=== PATIENT | male | born 1970 | race American Indian/Alaskan Native ===

== ENCOUNTER 2017-09-07 01:02 | Emergency (ER) | payer SELFPAY ==
[2017-09-07 01:31] VITALS: TEMP 96.8; O2SAT 98
--- NOTE | 2017-09-07 01:48 | ED PDOC ---
HPI: Psych/Substance Abuse Time Seen by Provider: 09/07/17 01:09 Chief Complaint (Nursing): Alcohol Ingestion Chief Complaint (Provider): Alcohol Ingestion History Per: Patient History/Exam Limitations: intoxication Onset/Duration Of Symptoms: Days (x1) Current Symptoms Are (Timing): Still Present Modifying Factor(s): Alcohol Additional History Per: EMS Additional Complaint(s): Sundar is a 47 year old male who was brought in by EMS for public intoxication. Patient admits to drinking alcohol today. Per police, patient was found intoxicated in the street. Patient has no further medical complaints at this time. PMD: Provider TBD Past Medical History Reviewed: Historical Data, Nursing Documentation, Vital Signs Vital Signs: Last Vital Signs Temp 96.8 F L 09/07/17 01:19 Pulse 83 09/07/17 01:19 Resp 19 09/07/17 01:19 BP 123/78 09/07/17 01:19 Pulse Ox 98 09/07/17 01:19 - Medical History PMH: Depression - Surgical History Surgical History: No Surg Hx - Family History Family History: States: Unknown Family Hx - Social History Current smoker - smoking cessation education provided: No Alcohol: < 2 Drinks/Day Drugs: Denies - Allergies Allergies/Adverse Reactions: Allergies Allergy/AdvReac Type Severity Reaction Status Date / Time No Known Allergies Allergy Verified 09/07/17 01:19 Review of Systems Review Of Systems: ROS cannot be obtained secondary to pt's inabilty to answer questions. Physical Exam - Reviewed Nursing Documentation Reviewed: Yes Vital Signs Reviewed: Yes - Physical Exam Appears: Positive for: Non-toxic, No Acute Distress Head Exam: Positive for: ATRAUMATIC, NORMOCEPHALIC Skin: Positive for: Normal Color, Warm, Dry Eye Exam: Positive for: EOMI, Normal appearance, PERRL Neck: Positive for: Normal, Painless ROM Cardiovascular/Chest: Positive for: Regular Rate, Rhythm. Negative for: Murmur Respiratory: Positive for: Normal Breath Sounds. Negative for: Respiratory Distress Gastrointestinal/Abdominal: Positive for: Normal Exam, Soft. Negative for: Tenderness Extremity: Positive for: Normal ROM. Negative for: Pedal Edema, Deformity Neurologic/Psych: Positive for: Alert (and awake), Other (Slurred speech. Appears drowsy but easily arousable. ) - Laboratory Results Result Diagrams: 09/07/17 01:54 09/07/17 01:54 - ECG O2 Sat by Pulse Oximetry: 98 (RA) Pulse Ox Interpretation: Normal Medical Decision Making Medical Decision Making: Time: 01:29 Initial Impression: 47 year old male with ETOH intoxication Initial Plan: --Alcohol serum --CMP --CBC --Accucheck --Pending clinical sobriety Scribe Attestation: Documented by Darleen Dasilva, acting as a scribe for Milton Angel MD Provider Scribe Attestation: All medical record entries made by the Scribe were at my direction and personally dictated by me. I have reviewed the chart and agree that the record accurately reflects my personal performance of the history, physical exam, medical decision making, and the department course for this patient. I have also personally directed, reviewed, and agree with the discharge instructions and disposition. Disposition - Clinical Impression Clinical Impression: Alcohol abuse with intoxication - Disposition Disposition: Routine/Home Disposition Time: 07:00 Condition: STABLE Instructions: Alcohol Intoxication (ED) Forms: [place] (Frisian)
[2017-09-07 01:56] LABS: BASO # 0.1 K/uL (0.0-0.2); BASO % 2.2 % (0.0-2.0); EOS # 0.2 K/uL (0.0-0.7); EOS % 4.5 % (0.0-4.0); HEMATOCRIT 42.9 % (35.0-51.0); LYMPH # 2.2 K/uL (1.0-4.3); LYMPH % 50.5 % (20.0-40.0); MEAN CELL VOLUME 90.5 fl (80.0-94.0); MEAN CORPUSCULAR HEMOGLOBIN 29.6 pg (27.0-31.0); MEAN CORPUSCULAR HGB CONC 32.7 g/dL (33.0-37.0); MEAN PLATELET VOLUME 8.2 fl (7.2-11.7); MONO # 0.5 K/uL (0.0-0.8); MONO % 12.5 % (0.0-10.0); NEUT # 1.3 K/uL (1.8-7.0); NEUT % 30.3 % (50.0-75.0); NRBC % 0.1 % (0.0-0.0); RED CELL DISTRIBUTION WIDTH 13.9 % (11.5-14.5); WHITE BLOOD COUNT 4.4 K/uL (4.8-10.8)
[2017-09-07 02:07] LABS: ALCOHOL SERUM 205 mg/dl (0-10); ALKALINE PHOSPHATASE 65 U/L (38-126); ALT/SGPT 58 U/L (21-72); AST/SGOT 37 U/L (17-59); BILIRUBIN,TOTAL 0.5 mg/dl (0.2-1.3); BLOOD UREA NITROGEN 21 mg/dl (9-20); CALCIUM 9.3 mg/dL (8.4-10.2); CARBON DIOXIDE 27 mmol/L (22-30); CHLORIDE 100 mmol/L (98-107); GFR AFRICAN-AMERICAN > 60; GLUCOSE,RANDOM 88 mg/dL (75-110); POTASSIUM 3.8 MMOL/L (3.6-5.0); SODIUM 145 mmol/l (132-148); TOTAL PROTEIN 8.8 G/DL (6.3-8.2)
[2017-09-07 02:08] LABS: ALB/GLOB RATIO 1.4 (1.0-2.1)
[2017-09-07 06:37] VITALS: BP 121/73; PULSE 75; RESP 16
== END 2017-09-07 06:00 | disposition home or self-care (01) ==
LOC: H.ER 01:02
DX: F10.129 Alcohol abuse with intoxication, unspecified (principal); F32.9 Major depressive disorder, single episode, unspecified
CPT/HCPCS: 80053; 82948; 85025; 99282; G0480

== ENCOUNTER 2019-01-05 08:52 | Emergency (ER) | payer MEDICAID, OTHER ==
[2019-01-05 08:56] VITALS: BMI 20.5
[2019-01-05 08:57] VITALS: TEMP 98; O2SAT 99
--- NOTE | 2019-01-05 09:20 | ED PDOC ---
HPI: General Adult Time Seen by Provider: 01/05/19 09:01 Chief Complaint (Provider): Wound care History Per: Patient History/Exam Limitations: no limitations Onset/Duration Of Symptoms: Days (7) Recently: Seen In ED Additional Complaint(s): 49yo male with history of depression, currently s/p suture placement on right palm 7 days ago, comes in for a wound check. Patient is also requesting a ref erral for outpatient follow up for depression; he states he has been off his medications and would like to get outpatient evaluation to get back on the medications. At this time, he denies any suicidal or homicidal ideation. Patient also denies any fever, chills, discharge from wound site, numbness. No additional complaints. PMD: None provided Past Medical History Reviewed: Historical Data, Nursing Documentation, Vital Signs Vital Signs: Last Vital Signs Temp 98.0 F 01/05/19 08:56 Pulse 85 01/05/19 08:56 Resp 18 01/05/19 08:56 BP 149/91 H 01/05/19 08:56 Pulse Ox 99 01/05/19 08:56 - Medical History PMH: Depression - Surgical History Surgical History: No Surg Hx - Family History Family History: States: No Known Family Hx, Unknown Family Hx - Allergies Allergies/Adverse Reactions: Allergies Allergy/AdvReac Type Severity Reaction Status Date / Time No Known Allergies Allergy Verified 09/07/17 01:19 Review of Systems ROS Statement: Except As Marked, All Systems Reviewed And Found Negative Constitutional: Negative for: Fever, Chills Skin: Positive for: Other (laceration with sutures in place on right palm) Neurological: Negative for: Numbness Psych: Negative for: Suicidal ideation Physical Exam - Reviewed Nursing Documentation Reviewed: Yes Vital Signs Reviewed: Yes - Physical Exam Appears: Positive for: Non-toxic, No Acute Distress (unkempt, poor hygiene) Head Exam: Positive for: ATRAUMATIC, NORMAL INSPECTION, NORMOCEPHALIC Skin: Positive for: Normal Color, Warm, DRY Eye Exam: Positive for: Normal appearance Neck: Positive for: Supple Cardiovascular/Chest: Positive for: Regular Rate, Rhythm. Negative for: Tachycardia Respiratory: Positive for: Normal Breath Sounds. Negative for: Respiratory Distress Pulses-Radial (R): 2+ Extremity: Positive for: Normal ROM (FROM right hand), Other (healing laceration on right palm with sutures in place; no drainage or erythema noted) Neurological/Psych: Positive for: Awake, Alert, Normal Tone, Oriented (x 3), Other (calm and cooperative) - ECG O2 Sat by Pulse Oximetry: 99 (RA) Pulse Ox Interpretation: Normal Medical Decision Making Medical Decision Makinyo male with sutures on right hand Informed patient to wait additional two days for suture removal as wound appears to be in area of tension; will wait to avoid dehiscence of wound. Scribe Attestation: Documented by Marleni Maya, acting as a scribe for González Tovar MD Provider Scribe Attestation: All medical record entries made by the Scribe were at my direction and personally dictated by me. I have reviewed the chart and agree that the record accurately reflects my personal performance of the history, physical exam, medical decision making, and the department course for this patient. I have also personally directed, reviewed, and agree with the discharge instructions and disposition. Disposition - Clinical Impression Clinical Impression: Encounter for re-check of laceration wound, Depression - Patient ED Disposition Is Patient to be Admitted: No Counseled Patient/Family Regarding: Diagnosis, Need For Followup - Disposition Disposition: Routine/Home Disposition Time: 10:24 Condition: FAIR Instructions: Depression, Wound Care
[2019-01-05 10:29] VITALS: BP 133/83; PULSE 81; RESP 16
== END 2019-01-05 10:29 | disposition home or self-care (01) ==
LOC: H.ER 08:52
DX: F32.9 Major depressive disorder, single episode, unspecified (principal)